=== PATIENT | female | born 1945 | race Caucasian/White ===

== ENCOUNTER 2017-02-05 17:31 | Emergency (ER) | payer MEDICARE, OTHER ==
--- NOTE | 2017-02-12 16:05 | ER ---
ADMIT: 02/05/2017 RM/LOC: ER [facility] MR#: [id number] [facility] [address] [place], [place] [id number] DARRON BATES [address] [place] [address] Emergency Room Report SEX: F AGE: 71 : 1945 DATE: 02/05/2017 HISTORY OF PRESENT ILLNESS: The patient is a 71-year-old, who injured her left hand. She tripped and fell, catching her fingers under her. She has pain with movement on her 4th finger. As a matter of fact, her ring had to be removed. She is right handed. She has had hernia repair. She takes aspirin and vitamin D. She has a history of osteopenia. PHYSICAL EXAMINATION: VITAL SIGNS: Upon examination, vitals within normal limits. EXTREMITIES: She has tenderness in her 4th left finger. There is bruising in the lateral aspect of her hand and limited range of motion. 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 CLINICAL IMPRESSION: 1. Abrasion of nose secondary to fall. 2. Fracture closed left 4th finger, no dislocation. PLAN: Repaired with a splint for finger with metal foam. Ash wrapped the hand. Skin of the nose cleansed and bacitracin applied to it. The patient was discharged and sent to primary provider for re-evaluation. JIMI Palomares / Zi Ramos MD / karen JOB #: [id number] CC: Zi Ramos MD, Attending Physician Chrsi Cole MD, Family Physician
== END 2017-02-05 20:30 | disposition home or self-care (01) ==
LOC: ER 17:31
DX: S62.605A Fracture of unspecified phalanx of left ring finger, initial encounter for closed fracture (principal); S00.31XA Abrasion of nose, initial encounter; Z79.82 Long term (current) use of aspirin; W18.09XA Striking against other object with subsequent fall, initial encounter